=== PATIENT | male | born 1970 | race Caucasian/White ===

== ENCOUNTER 2017-12-12 07:55 | Emergency (ER) | payer SELFPAY ==
[2017-12-12 08:11] VITALS: BP 119/74
--- NOTE | 2017-12-12 08:28 | ED ---
GI/ HPI - HPI Summary HPI Summary: 47 yr old male with NVD, onset Tuesday, and after eating clams at a restaurant. The patient has no fever, chills. He does have muscle aches. He states he still have vomiting, three episodes this morning, and he still has diarrhea. He has aches all over. Denies abdominal pain, fever. He went to the ER Tuesday, and was given zofran. - History of Current Complaint Chief Complaint: UCGI Time Seen by Provider: 12/12/17 08:15 Stated Complaint: VOMITING,DIARRHEA Pain Intensity: 9 - Allergy/Home Medications Allergies/Adverse Reactions: Allergies Allergy/AdvReac Type Severity Reaction Status Date / Time No Known Allergies Allergy Verified 09/05/14 12:09 Home Medications: Home Medications Ondansetron ODT TAB* [Zofran 4 MG Odt TAB*] 4 mg PO Q6H 12/12/17 [History Confirmed 12/12/17] PMH/Surg Hx/FS Hx/Imm Hx Previously Healthy: Yes Sensory History: Denies: Hx Contacts or Glasses, Hx Hearing Aid Opthamlomology History: Denies: Hx Contacts or Glasses - Surgical History Surgery Procedure, Year, and Place: APPENDECTOMY WHEN [facility] Hx Anesthesia Reactions: No Infectious Disease History: No Infectious Disease History: Reports: Hx of Known/Suspected MRSA - [facility] Denies: Traveled Outside the [place] in Last 30 Days - Family History Known Family History: Positive: None - Social History Occupation: Employed Full-time Lives: With Family Alcohol Use: None Substance Use Type: Reports: None Substance Use Comment - Amount & Last Used: CURRENTLY TAKING PAIN MED Smoking Status (MU): Never Smoked Tobacco Review of Systems Constitutional: Negative Positive: Vomiting, Diarrhea, Nausea Positive: Myalgia All Other Systems Reviewed And Are Negative: Yes Physical Exam Triage Information Reviewed: Yes Vital Signs On Initial Exam: Initial Vitals Temp Pulse Resp BP Pulse Ox 97.9 F 86 18 119/74 98 12/12/17 08:08 12/12/17 08:08 12/12/17 08:08 12/12/17 08:08 12/12/17 08:08 Vital Signs Reviewed: Yes Appearance: Positive: Well-Appearing, No Pain Distress Skin: Positive: Warm, Skin Color Reflects Adequate Perfusion Head/Face: Positive: Normal Head/Face Inspection Eyes: Positive: EOMI ENT: Positive: Normal ENT inspection Neck: Positive: Nontender Respiratory/Lung Sounds: Positive: Clear to Auscultation, Breath Sounds Present Cardiovascular: Positive: RRR. Negative: Murmur Abdomen Description: Positive: Nontender, Soft. Negative: Distended, Guarding Musculoskeletal: Positive: Strength/ROM Intact Neurological: Positive: Sensory/Motor Intact, Alert, Oriented to Person Place, Time, CN Intact II-III Psychiatric: Positive: Normal - Spring Coma Scale Best Eye Response: 4 - Spontaneous Best Motor Response: 6 - Obeys Commands Best Verbal Response: 5 - Oriented Coma Scale Total: 15 Diagnostics - Vital Signs Vital Signs Temp Pulse Resp BP Pulse Ox 12/12/17 08:08 97.9 F 86 18 119/74 98 - Laboratory Lab Statement: Any lab studies that have been ordered have been reviewed, and results considered in the medical decision making process. GIGU Course/Dx - Course Course Of Treatment: 47 yr old with gastroenteritis. He is going to the ER for further management. is driving him. - Diagnoses Provider Diagnoses: Gastroenteritis Discharge - Sign-Out/Discharge Documenting (check all that apply): Patient Departure All imaging exams completed and their final reports reviewed: No Studies - Discharge Plan Condition: Good Disposition: HOME-RECOMMEND TO ED Patient Education Materials: Acute Nausea and Vomiting (ED) Referrals: López Machado NP [Primary Care Provider] - Additional Instructions: You should go to the ER for further work up and management of your symptoms after leaving here. - Billing Disposition and Condition Condition: GOOD Disposition: Home-Recommend to ED
== END 2017-12-12 08:28 | disposition home health service (06) ==
LOC: UCCORT 07:55
DX: K52.9 Noninfective gastroenteritis and colitis, unspecified (principal)
CPT/HCPCS: 99202; G0463

== ENCOUNTER 2017-12-25 11:23 | Emergency (ER) | payer SELFPAY ==
[2017-12-25 13:29] LABS: ABS Basophils 0.1 10^3/ul (0-0.2); ABS Eosinophils 0.2 10^3/ul (0-0.6); ABS Lymphocytes 2.9 10^3/ul (1.0-4.8); ABS Monocytes 1.5 10^3/ul (0-0.8); ABS Nucleated RBC 0.1 10^3/ul; Eosinophil % 1.1 % (0-6); Hematocrit 50 % (42-52); Hemoglobin 17.5 g/dl (14.0-18.0); Lymphocyte % 19.7 % (25-47); Mean Corpuscular HGB Conc 35 g/dl (31-36); Mean Corpuscular Hemoglobin 29 pg (27-31); Mean Corpuscular Volume 85 fL (80-94); Mean Platelet Volume 8.2 fL (7.4-10.4); Nucleated Red Blood Cells % 0.9; Platelet Count 468 10^3/ul (150-450); Red Blood Count 5.94 10^6/ul (4.00-5.40); Red Cell Distribution Width 13 % (10.5-15); White Blood Count 14.7 10^3/ul (3.5-10.8)
[2017-12-25 13:47] LABS: EGFR Non-African American 49.9 (>60)
[2017-12-25] MEDS ORDERED: NS 0.9% 1000 ML* 2,000 ML IV ONE (13:51)
[2017-12-25] MEDS ORDERED: Ondansetron INJ* 2 MG/ML VIAL IV ONE ×2 (13:52→16:42)
[2017-12-25 14:18] LABS: Urine Appearance Cloudy; Urine Blood 1+ (Negative); Urine Color Amber; Urine Ketones 1+ (Negative); Urine Protein Negative (Negative); Urine Red Blood Cell Trace(0-2/hpf) (Absent); Urine Specific Gravity 1.024 (1.010-1.030); Urine Urobilinogen Positive (Negative); Urine White Blood Cell Trace(0-5/hpf) (Absent)
[2017-12-25] MEDS ORDERED: NS 0.9% 1000 ML* 1,000 ML IV ONE ×2 (15:25→15:55)
--- NOTE | 2017-12-25 16:02 | ED ---
Nausea/Vomiting/Diarrhea HPI - HPI Summary HPI Summary: Patient is a 47-year-old male who is otherwise healthy presenting to the ED with a 2 week history of persistent nausea vomiting. He states this is his third visit to the ED. He was seen at [facility] ED, labs were obtained and he was rehydrated with 1 L fluids and given Zofran. He was diagnosed with a viral syndrome as well as nausea vomiting. He states symptoms began after eating clams 2 weeks ago. He endorsed nausea, vomiting, diarrhea times proximally 2 days. He then states the diarrhea subsided, but the nausea and vomiting persisted. Nausea, vomiting has been present almost daily, but states he has had a few days where he was not nauseous, however continues to be unable to eat anything. He states he is hungry but upon looking at food he becomes very nauseous. He is ever headache like this before. He is otherwise healthy and has no diagnoses. He takes no medications. Zofran with some improvement, however continues to be unable to drink anything as well. Last BM 10 days ago and was normal. - History of Current Complaint Chief Complaint: EDFluSymptoms Stated Complaint: BODY ACHES, VOMITING Time Seen by Provider: 12/25/17 11:37 Hx Obtained From: Patient, Family/[employer] Onset/Duration: Gradual Onset Timing: Constant Severity Initially: Moderate Severity Currently: Moderate Pain Intensity: 0 Pain Scale Used: 0-10 Numeric Aggravating Factor(s): Food Alleviating Factor(s): Nothing Vomiting Frequency: Every 3-4 hours Nausea/Vomiting Duration: > 7 days Vomiting Characteristics: Nonbilious Diarrhea Presence: No - previous diarrhea, but this subsided 12+ days ago Diarrhea Duration: 12-24 hours - Risk Factors Influenza Risk Factors: Negative Surgical Obstruction Risk Factor(s): Negative - Allergies/Home Medications Allergies/Adverse Reactions: Allergies Allergy/AdvReac Type Severity Reaction Status Date / Time No Known Allergies Allergy Verified 12/25/17 11:26 PMH/Surg Hx/FS Hx/Imm Hx Previously Healthy: Yes Sensory History: Denies: Hx Contacts or Glasses, Hx Hearing Aid Opthamlomology History: Denies: Hx Contacts or Glasses - Surgical History Surgery Procedure, Year, and Place: APPENDECTOMY WHEN [facility] Hx Anesthesia Reactions: No - Immunization History Hx Pertussis Vaccination: No Immunizations Up to Date: Yes Infectious Disease History: No Infectious Disease History: Reports: Hx of Known/Suspected MRSA - [facility] Denies: Traveled Outside the [place] in Last 30 Days - Family History Known Family History: Positive: None - Social History Occupation: Employed Full-time Lives: With Family Alcohol Use: None Hx Substance Use: No Substance Use Type: Reports: None Hx Tobacco Use: No Smoking Status (MU): Never Smoked Tobacco Review of Systems Positive: Fatigue. Negative: Fever, Chills, Skin Diaphoresis Negative: Dental Pain, Sore Throat, Ear Ache Negative: Palpitations, Chest Pain Negative: Shortness Of Breath, Cough Positive: Vomiting, Nausea. Negative: Abdominal Pain, Diarrhea Genitourinary: Negative Positive: no symptoms reported, see HPI Negative: Arthralgia, Myalgia Skin: Negative Neurological: Negative All Other Systems Reviewed And Are Negative: Yes Physical Exam Triage Information Reviewed: Yes Vital Signs On Initial Exam: Initial Vitals Temp Pulse Resp BP Pulse Ox 97 F 105 16 108/80 97 12/25/17 11:26 12/25/17 11:26 12/25/17 11:26 12/25/17 11:26 12/25/17 11:26 Vital Signs Reviewed: Yes Appearance: Positive: Well-Appearing, Well-Nourished Skin: Positive: Warm, Skin Color Reflects Adequate Perfusion, Other - dry mucous membranes Head/Face: Positive: Normal Head/Face Inspection Eyes: Positive: EOMI, JUANA, Conjunctiva Clear Neck: Positive: Supple, No Lymphadenopathy Respiratory/Lung Sounds: Positive: Clear to Auscultation, Breath Sounds Present Cardiovascular: Positive: RRR, Pulses are Symmetrical in both Upper and Lower Extremities Musculoskeletal: Positive: Normal, Strength/ROM Intact Neurological: Positive: Speech Normal Psychiatric: Positive: Normal, Affect/Mood Appropriate AVPU Assessment: Alert Diagnostics - Vital Signs Vital Signs Temp Pulse Resp BP Pulse Ox 12/25/17 13:37 97.3 F 86 14 118/86 100 12/25/17 13:36 87 118/86 97 12/25/17 11:26 97 F 105 16 108/80 97 - Laboratory Lab Results: Lab Results 12/25/17 12/25/17 12/25/17 Range/Units 12:18 13:16 13:16 WBC 14.7 H (3.5-10.8) 10^3/ul RBC 5.94 H (4.00-5.40) 10^6/ul Hgb 17.5 (14.0-18.0) g/dl Hct 50 (42-52) % MCV 85 (80-94) fL MCH 29 (27-31) pg MCHC 35 (31-36) g/dl RDW 13 (10.5-15) % Plt Count 468 H (150-450) 10^3/ul MPV 8.2 (7.4-10.4) fL Neut % (Auto) 68.4 (38-83) % Lymph % (Auto) 19.7 L (25-47) % [place] % (Auto) 10.0 H (0-7) % Eos % (Auto) 1.1 (0-6) % Baso % (Auto) 0.8 (0-2) % Absolute Neuts (auto) 10.0 H (1.5-7.7) 10^3/ul Absolute Lymphs (auto) 2.9 (1.0-4.8) 10^3/ul Absolute Monos (auto) 1.5 H (0-0.8) 10^3/ul Absolute Eos (auto) 0.2 (0-0.6) 10^3/ul Absolute Basos (auto) 0.1 (0-0.2) 10^3/ul Absolute Nucleated RBC 0.1 10^3/ul Nucleated RBC % 0.9 Sodium 135 (135-145) mmol/L Potassium 4.7 (3.5-5.0) mmol/L Chloride 96 L (101-111) mmol/L Carbon Dioxide 25 (22-32) mmol/L Anion Gap 14 H (2-11) mmol/L BUN 39 H (6-24) mg/dL Creatinine 1.50 H (0.67-1.17) mg/dL Est GFR ( Amer) 60.4 (>60) Est GFR (Non-Af Amer) 49.9 (>60) BUN/Creatinine Ratio 26.0 H (8-20) Glucose 87 (70-100) mg/dL Lactic Acid (0.5-2.0) mmol/L Calcium 9.6 (8.6-10.3) mg/dL Magnesium 2.3 (1.9-2.7) mg/dL Total Bilirubin 1.00 (0.2-1.0) mg/dL AST 18 (13-39) U/L ALT 16 (7-52) U/L Alkaline Phosphatase 71 (34-104) U/L Total Creatine Kinase 75 (10-223) U/L Troponin I 0.01 (<0.04) ng/mL C-Reactive Protein 23.30 H (<8.01) mg/L Total Protein 8.9 (6.4-8.9) g/dL Albumin 4.1 (3.2-5.2) g/dL Globulin 4.8 H (2-4) g/dL Albumin/Globulin Ratio 0.9 L (1-3) Amylase 55 (29-103) U/L Lipase 89 H (11.0-82.0) U/L Urine Color Urine Appearance Urine pH (5-9) Ur Specific [place] (1.010-1.030) Urine Protein (Negative) Urine Ketones (Negative) Urine Blood (Negative) Urine Nitrate (Negative) Urine Bilirubin (Negative) Urine Urobilinogen (Negative) Ur Leukocyte Esterase (Negative) Urine WBC (Auto) (Absent) Urine RBC (Auto) (Absent) Ur Squamous Epith Cells (Absent) Urine Bacteria (Absent) Hyaline Casts (Absent) Granular Casts (Absent) Urine Glucose (Negative) Monoscreen (Negative) Influenza A (Rapid) Negative (Negative) Influenza B (Rapid) Negative (Negative) 12/25/17 12/25/17 12/25/17 Range/Units 13:21 14:04 14:30 WBC (3.5-10.8) 10^3/ul RBC (4.00-5.40) 10^6/ul Hgb (14.0-18.0) g/dl Hct (42-52) % MCV (80-94) fL MCH (27-31) pg MCHC (31-36) g/dl RDW (10.5-15) % Plt Count (150-450) 10^3/ul MPV (7.4-10.4) fL Neut % (Auto) (38-83) % Lymph % (Auto) (25-47) % [place] % (Auto) (0-7) % Eos % (Auto) (0-6) % Baso % (Auto) (0-2) % Absolute Neuts (auto) (1.5-7.7) 10^3/ul Absolute Lymphs (auto) (1.0-4.8) 10^3/ul Absolute Monos (auto) (0-0.8) 10^3/ul Absolute Eos (auto) (0-0.6) 10^3/ul Absolute Basos (auto) (0-0.2) 10^3/ul Absolute Nucleated RBC 10^3/ul Nucleated RBC % Sodium (135-145) mmol/L Potassium (3.5-5.0) mmol/L Chloride (101-111) mmol/L Carbon Dioxide (22-32) mmol/L Anion Gap (2-11) mmol/L BUN (6-24) mg/dL Creatinine (0.67-1.17) mg/dL Est GFR ( Amer) (>60) Est GFR (Non-Af Amer) (>60) BUN/Creatinine Ratio (8-20) Glucose (70-100) mg/dL Lactic Acid 0.5 (0.5-2.0) mmol/L Calcium (8.6-10.3) mg/dL Magnesium (1.9-2.7) mg/dL Total Bilirubin (0.2-1.0) mg/dL AST (13-39) U/L ALT (7-52) U/L Alkaline Phosphatase (34-104) U/L Total Creatine Kinase (10-223) U/L Troponin I (<0.04) ng/mL C-Reactive Protein (<8.01) mg/L Total Protein (6.4-8.9) g/dL Albumin (3.2-5.2) g/dL Globulin (2-4) g/dL Albumin/Globulin Ratio (1-3) Amylase (29-103) U/L Lipase (11.0-82.0) U/L Urine Color J[place] Urine Appearance Cloudy Urine pH 5.0 (5-9) Ur Specific [place] 1.024 (1.010-1.030) Urine Protein Negative (Negative) Urine Ketones 1+ A (Negative) Urine Blood 1+ A (Negative) Urine Nitrate Negative (Negative) Urine Bilirubin Negative (Negative) Urine Urobilinogen Positive A (Negative) Ur Leukocyte Esterase Negative (Negative) Urine WBC (Auto) Trace(0-5/hpf) (Absent) Urine RBC (Auto) Trace(0-2/hpf) (Absent) Ur Squamous Epith Cells Present A (Absent) Urine Bacteria Absent (Absent) Hyaline Casts Present A (Absent) Granular Casts Present A (Absent) Urine Glucose Negative (Negative) Monoscreen Negative (Negative) Influenza A (Rapid) (Negative) Influenza B (Rapid) (Negative) Result Diagrams: 12/25/17 13:16 12/25/17 13:16 Lab Statement: Any lab studies that have been ordered have been reviewed, and results considered in the medical decision making process. Re-Evaluation - Re-Evaluation First Eval Change: Unchanged - patient is unchanged with 1L fluids Second Eval Change: Improved - second liter fluids and zofran given with improvement Third Eval Change: Improved - able to keep down beef broth and crackers Naus/Vom/Diarrhea Course/Dx - Course Course Of Treatment: During the course treatment, the patient's evaluated for nausea, vomiting and diarrhea. Diarrhea subsided approximately 2 weeks ago, 2 days following the initial nausea and vomiting, however not and vomiting remains almost on a daily basis with upwards of 46 times per day on some days. Worse with trying to drink water or eating, better with rest. He denies any fevers, sweats, chills. Denies any known sick contacts. Denies any sore throat , myalgias. He denies any abdominal pain or abdominal surgeries. He takes no medications. He has not been taking any medication at home for improvement, however he was given Zofran upon his last visit to [place]. He denies any known allergies to food or otherwise. He is rehydrated with 3 L fluids and given 4 mg IV Zofran with good improvement. He is given the broth as well as crackers and was able to keep this down. CT abdomen and pelvis obtained which shows no acute findings for cause of his symptoms. Chest x-ray obtained and shows no acute cardiopulmonary disease. Labs obtained which show a slightly elevated white count likely secondary to his persistent vomiting. Labs also showed dehydration, but otherwise WNL. In total he is given 3 L normal saline and 8 mg Zofran with good improvement. He is able to keep down crackers and broth. I have given him a referral for GI and he is encouraged to return if any of these symptoms continue. - Differential Dx/Diagnosis Provider Diagnoses: Nausea/vomiting Condition At Discharge: Stable Discharge - Sign-Out/Discharge Documenting (check all that apply): Patient Departure - Discharge Plan Condition: Stable Disposition: HOME Prescriptions: Ondansetron ODT TAB* [Zofran 4 MG Odt TAB*] 4 mg PO Q6H PRN #30 tab.odt MDD 4 PRN Reason: Nausea Patient Education Materials: Acute Nausea and Vomiting (ED) Referrals: Abisai Rodriges MD [Medical Doctor] - López Machado NP [Primary Care Provider] - Additional Instructions: Please follow up with Dr. Rodriges if symptoms persist or worsen Zofran - four times daily x 2 days - then as needed after Drink small amount of fluids - gatorade and broth White rice (bland), toast, chicken noodle soup, crackers, etc. - Billing Disposition and Condition Condition: STABLE Disposition: Home
[2017-12-25 17:16] VITALS: BP 116/75
== END 2017-12-25 17:19 | disposition home or self-care (01) ==
LOC: ED 11:23
DX: R11.2 Nausea with vomiting, unspecified (principal)
CPT/HCPCS: 36415; 71046; 74176; 80053; 81003; 81015; 82150; 82550; 83605; 83690; 83735; 84484; 85025; 86140; 86308; 87040; 87086; 96361; 96374; 96375; 99283; J2405